=== PATIENT | female | born 1960 | race Caucasian/White ===

== ENCOUNTER 2017-04-02 06:33 | Day surgery (SDC) | payer BC ==
[~2017-04-02 06:33] MED LIST: Lactated Ringers 1,000 ML IV SCH; Lidocaine 1%/Sod Bicarbonate in NS 8.4% 1 ML Syringe IDERM PRN; Sodium Chloride 0.9% 10 ML Syringe FLUSH PRN
[2017-04-02] MEDS ORDERED: Ondansetron 4 MG/2 ML SDV ONE (06:46)
[2017-04-02] MEDS ORDERED: Lidocaine 1% 4 ML ONE (06:46)
[2017-04-02] MEDS ORDERED: Midazolam 1 MG/ML 2 ML SDV ONE (06:47)
[2017-04-02] MEDS ORDERED: Propofol 200 MG/20 ML SDV ONE ×3 (06:47→08:13)
[2017-04-02] MEDS ORDERED: fentaNYL 250 MCG/5 ML SDV ONE (06:47)
--- NOTE | 2017-04-02 07:01 | PCM.PREANE ---
Preanesthetic Assessment - Anesthesia/Transfusion/Family Hx Anesthesia History: Prior Anesthesia Reaction Type of Anesthesia Reaction: Other (see below) (sleepy and nausea) Family History of Anesthesia Reaction: No Transfusion History: No Prior Transfusion(s) - Review of Systems General: No Symptoms Pulmonary: No Symptoms Cardiovascular: No Symptoms Gastrointestinal: No Symptoms Neurological: No Symptoms Other: Reports: None - Physical Assessment NPO Status Date: 04/01/17 NPO Status Time: 21:45 Pulse: 67 O2 Sat by Pulse Oximetry: 94 Respiratory Rate: 20 Blood Pressure: 129/74 Temperature: 97.9 F Height: 5 ft 9 in Weight: 86.183 kg ASA Class: 1 Mental Status: Alert & Oriented x3 Airway Class: Mallampati = 1 Dentition: Reports: Normal Dentition Thyro-Mental Finger Breadths: 3 Mouth Opening Finger Breadths: 3 ROM/Head Extension: Full Lungs: Clear to Auscultation, Normal Respiratory Effort Cardiovascular: Regular Rate, Regular Rhythm - Allergies Allergies/Adverse Reactions: Allergies Allergy/AdvReac Type Severity Reaction Status Date / Time codeine Allergy Cannot Verified 04/01/17 15:12 Remember Penicillins Allergy Cannot Verified 04/01/17 15:12 Remember - Blood Blood Available: No - Acknowledgements Anesthesia Type Planned: General Anesthesia Pt an Appropriate Candidate for the Planned Anesthesia: Yes Alternatives and Risks of Anesthesia Discussed w Pt/Guardian: Yes Pt/Guardian Understands and Agrees with Anesthesia Plan: Yes PreAnesthesia Questionnaire HEENT History: Reports: None Cardiovascular History: Reports: None Respiratory History: Reports: None Gastrointestinal History: Reports: None Genitourinary History: Reports: None SERVICE SUPPORT REPRESENTATIVE History: Reports: Other (See Below) Other OB/BYN History: laparotomy Musculoskeletal History: Reports: None Neurological History: Reports: None Psychiatric History: Reports: None Endocrine/Metabolic History: Reports: None Hematologic History: Reports: None Immunologic History: Reports: None Oncologic (Cancer) History: Reports: None Dermatologic History: Reports: None - Past Surgical History Head Surgeries/Procedures: Reports: None HEENT Surgical History: Reports: None Cardiovascular Surgical History: Reports: None Respiratory Surgical History: Reports: None GI Surgical History: Reports: Appendectomy, Colonoscopy Female Surgical History: Reports: Breast Reduction, D&C, Hysterectomy Endocrine Surgical History: Reports: None Neurological Surgical History: Reports: None Musculoskeletal Surgical History: Reports: None Oncologic Surgical History: Reports: None Dermatological Surgical History: Reports: None - History Comment History Comment: on no meds at home - SUBSTANCE USE Smoking Status *Q: Former Smoker (quit 1988) Tobacco Use Within Last Twelve Months: No Second Hand Smoke Exposure: No Days Per Week of Alcohol Use: 1 Number of Drinks Per Day: 2 Total Drinks Per Week: 2 Recreational Drug Use History: No - HOME MEDS Home Medications: Home Meds Cholecalciferol (Vitamin D3) [Vitamin D3] 1,000 units PO DAILY 04/01/17 [History ] Fish Oil/[place]-3 Fatty Acids [Fish Oil 1,000 MG] 1 gm PO DAILY 04/01/17 [History ] Multivitamin [Daily Grant] 1 tab PO DAILY 04/01/17 [History] Aspirin 325 mg PO BID #84 tab 04/02/17 [Rx] traMADol [Ultram] 50 - 100 mg PO Q4H PRN #30 tab 04/02/17 [Rx] - CURRENT (IN HOUSE) MEDS Current Meds: Current Medications Lactated Ringer's (Ringers, Lactated) 1,000 mls @ 125 mls/hr IV ASDIRECTED CHRISTIANO Stop: 04/02/17 23:00 Lidocaine/Sodium Bicarbonate (Buffered Lidocaine 1% In Ns 8.4%) 0.25 ml IDERM ONETIME PRN PRN Reason: Prior to IV Start Stop: 04/02/17 18:00 Sodium Chloride (Saline Flush) 10 ml FLUSH ASDIRECTED PRN PRN Reason: Keep Vein Open Stop: 04/02/17 18:00 Discontinued Medications Fentanyl (Sublimaze) Confirm Administered Dose 250 mcg .ROUTE .STK-MED ONE Stop: 04/02/17 06:48 Lidocaine HCl (Xylocaine-Mpf 1%) Confirm Administered Dose 4 mls @ as directed .ROUTE .STK-MED ONE Stop: 04/02/17 06:47 Midazolam HCl (Versed 1 Mg/Ml) Confirm Administered Dose 2 mg .ROUTE .STK-MED ONE Stop: 04/02/17 06:48 Ondansetron HCl (Zofran) Confirm Administered Dose 4 mg .ROUTE .STK-MED ONE Stop: 04/02/17 06:47 Propofol (Diprivan 20 Ml) Confirm Administered Dose 200 mg .ROUTE .STK-MED ONE Stop: 04/02/17 06:48
[2017-04-02] MEDS ORDERED: Metoclopramide 10 MG/2 ML SDV ONE (07:11)
[2017-04-02] MEDS ORDERED: Bupivacaine 0.25% 10 ML SDV ONE (07:15)
[2017-04-02] MEDS ORDERED: EPINEPHrine 1 MG/ML 30 ML MDV IV ONE (07:30)
[2017-04-02] MEDS ORDERED: Dexamethasone 4 MG/ML 5 ML MDV ONE ×2 (07:31→09:01)
[2017-04-02] MEDS ORDERED: fentaNYL 100 MCG/2 ML SDV IVPUSH PRN (07:38)
[2017-04-02] MEDS ORDERED: Ondansetron 4 MG/2 ML SDV IVPUSH PRN (07:38)
[2017-04-02] MEDS ORDERED: Meperidine PF 50 MG/ML Syringe IVPUSH PRN (07:38)
[2017-04-02] MEDS ORDERED: ePHEDrine 50 MG/ML SDV ONE (07:47)
[2017-04-02] MEDS ORDERED: ceFAZolin 1 GM Vial ONE (07:57)
[2017-04-02] MEDS ORDERED: Ketorolac 30 MG/ML SDV ONE (08:02)
--- NOTE | 2017-04-02 08:41 | PCM.POSTAN ---
POST ANESTHESIA ASSESSMENT - MENTAL STATUS Mental Status: Alert, Oriented - VITAL SIGNS Pulse Rate: 88 SaO2: 100 Resp Rate: 12 Blood Pressure: 133/81 Temperature: 97.2 F - RESPIRATORY Respiratory Status: Respiratory Rate WNL, Airway Patent, O2 Saturation Stable, Supplemental Oxygen - CARDIOVASCULAR CV Status: Pulse Rate WNL, Blood Pressure Stable - GASTROINTESTINAL GI Status: No Symptoms - PAIN Pain Score: 0 - POST OP HYDRATION Hydration Status: Adequate & Stable
[2017-04-02] MEDS ORDERED: traMADol 50 MG Tab PO PRN (09:16)
[2017-04-02] MEDS ORDERED: Lactated Ringers 1,000 ML ONE (09:22)
--- NOTE | 2017-04-02 10:19 | PCM48HPAN ---
Post Anesthesia Note - EVALUATION WITHIN 48HRS OF ANESTHETIC Vital Signs in Normal Range: Yes Patient Participated in Evaluation: Yes Respiratory Function Stable: Yes Airway Patent: Yes Cardiovascular Function Stable: Yes Hydration Status Stable: Yes Pain Control Satisfactory: Yes Nausea and Vomiting Control Satisfactory: Yes Mental Status Recovered: Yes Pulse Rate: 88 Resp Rate: 16 Temperature: 97.2 F Blood Pressure: 133/81
--- NOTE | 2017-04-05 21:40 | PCM.OPNOTE ---
- General Post-Op/Procedure Note Date of Surgery/Procedure: 04/02/17 Operative Procedure(s): left knee video arthroscopy with medial femoral condyle chondroplasty Pre Op Diagnosis: left knee osteoarthritis with probable medial meniscus tear Post-Op Diagnosis: left knee osteoarthosis Anesthesia Technique: General LMA, Local Primary Surgeon: Davis Cueva Anesthesia Provider: Ailin Olivarez Follow Up Specialist: Andie Hollins EBJacinto in mLs: 5 Complications: None Condition: Good
--- NOTE | 2017-04-05 22:34 | OR ---
DATE OF OPERATION: 04/02/2017 SURGEON: Davis Cueva MD OPERATION PERFORMED: Left knee video arthroscopy with medial femoral condyle chondroplasty. PREOPERATIVE DIAGNOSIS: Left knee osteoarthrosis with probable medial meniscus tear. 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 ANESTHESIA: General LMA with local. ANESTHESIA PROVIDER: Ailin Olivarez CRNA. PEDIATRIC ONCOLOGIST: Andie Hollins PA-C. ESTIMATED BLOOD LOSS: 5 mL. COMPLICATIONS: None. CONDITION: Stable. DESCRIPTION OF PROCEDURE: The patient was identified in the preop holding area. Proper site was marked and identified by the surgeon. The patient was taken back to the operating theater, where after adequate anesthesia, the patient's right lower extremity was placed in a well leg chaney. Left lower extremity had a nonsterile tourniquet and then placed in a C-clamp chaney. Foot of bed was then lowered and the left knee was sterilely prepped and draped in the usual sterile fashion. OR time-out was performed. The patient received 2 g IV Ancef. The left lower extremity was then exsanguinated. Tourniquet was insufflated to 250 mmHg. Standard anterior lateral portal incision was made. Then, scope trocar was introduced into the knee. At this time, patella showed grade 1 chondromalacia as well as the trochlea. There were no loose or foreign bodies in the mediolateral gutter. Attention was turned to the medial compartment. At this time, with use of a spinal needle, an anterior medial portal was created. A probe was then introduced. The patient was noted to have significant erythema noted near the junction of the capsular attachment of the medial meniscus, but there was no tear noted. The patient did have significant grade 3/4 chondromalacia with loose flaps noted on the medial femoral condyle and there was grade 3 chondromalacia of the medial tibial plateau. At this time, a chondroplasty was performed of the medial femoral condyle of any loose pieces of cartilage at this time back to a stable rim. At this time, attention was turned to the notch. There was an intact ACL on the notch lateral condyle. The lateral compartment showed no signs of chondromalacia or lateral meniscus tear. At this time, excess saline was drained from the knee. 3-0 nylon simple suture was used for closure of the skin. The patient was sent to the PACU in stable condition. MMODAL /[id number]
== END 2017-04-02 11:35 | disposition home or self-care (01) ==
LOC: JD.SDS 06:33
PROVIDERS: ATTEND Orthopaedic Surgery
DX: M94.262 Chondromalacia, left knee (principal); Z90.49 Acquired absence of other specified parts of digestive tract; Z90.710 Acquired absence of both cervix and uterus; Z88.0 Allergy status to penicillin; Z88.8 Allergy status to other drugs, medicaments and biological substances; Z87.891 Personal history of nicotine dependence; Z79.899 Other long term (current) drug therapy
CPT/HCPCS: 29877; J0171; J0690; J1100; J1885; J2250; J2405; J2765; J3010; J7120; J2704

== ENCOUNTER 2017-06-06 07:52 | Observation (INO) | payer BC ==
--- NOTE | 2017-06-06 08:26 | EDM.PDOC ---
ED HPI GENERAL MEDICAL PROBLEM - General Chief Complaint: Fever Stated Complaint: BODY ACHES/FEVER/VOMITING Time Seen by Provider: 06/06/17 08:18 Source of Information: Reports: Patient History Limitations: Reports: No Limitations - History of Present Illness INITIAL COMMENTS - FREE TEXT/NARRATIVE: 57-year-old female presents to the ED due to acute onset of illness with high fever chills with rigors. Diffuse generalized myalgia headache nausea vomiting and diarrhea and nonproductive cough. All the signs and symptoms of influenza type B. Symptoms developed over the last 12 hours or so. Came on very acutely. She is normally very healthy. 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 Influenza B is still been prevalent in her community. Had not taken anything for fever relief. She reports sweats diaphoresis and then severe chills off and on throughout the night. Vomited up her supper last night and has had 2 loose stools overnight. No blood. States she is passing her urine but in small quantities. No burning or urgency. Patient does mention that she's been cleaning out the attic in her parents house with dust up there for 30-35 years. Initially was not wearing a mask but was wearing while mask the last few days. She did not witness any mouse poop per se but mentions possibility of to virus exposure. This be unlikely in this environment. Onset: Sudden Onset Date: 06/05/17 Duration: Hour(s): (Symptoms came on abruptly over the last 12-16 hours.) Location: Reports: Chest (Nonproductive cough), Generalized (Generalized myalgia with a headache), Other (Nausea vomiting with mild diarrhea.) Quality: Reports: Ache (Generalized aching.) Severity: Moderate (Rates current pain 7-8 out of 10.) Improves with: Reports: None Worsens with: Reports: Movement Context: Denies: Activity, Exercise, Lifting, Sick Contact, Trauma Associated Symptoms: Reports: Cough, Diaphoresis, Fever/Chills, Headaches, Loss of Appetite, Malaise, Nausea/Vomiting (Once last evening after eating out for supper last night.), Weakness. Denies: No Other Symptoms, Confusion, Chest Pain , cough w sputum, Rash, Seizure, Shortness of Breath, Syncope Treatments BUTTON SEWER HAND: Reports: Other (see below) (None.) Generalized Pain Score (Numeric/FACES): 5 - Related Data Allergies Allergy/AdvReac Type Severity Reaction Status Date / Time codeine Allergy Cannot Verified 06/06/17 08:09 Remember Penicillins Allergy Cannot Verified 06/06/17 08:09 Remember Home Meds: Home Meds Cholecalciferol (Vitamin D3) [Vitamin D3] 1,000 units PO DAILY 04/01/17 [History ] Fish Oil/[place]-3 Fatty Acids [Fish Oil 1,000 MG] 1 gm PO DAILY 04/01/17 [History ] Multivitamin [Daily Grant] 1 tab PO DAILY 04/01/17 [History] Past Medical History HEENT History: Reports: None Cardiovascular History: Reports: None Respiratory History: Reports: None Gastrointestinal History: Reports: None Genitourinary History: Reports: None PRIVATE INVESTIGATOR SURVEILLANCE History: Reports: Other (See Below) Other OB/BYN History: laparotomy Musculoskeletal History: Reports: None Neurological History: Reports: None Psychiatric History: Reports: None Endocrine/Metabolic History: Reports: None Hematologic History: Reports: None Immunologic History: Reports: None Oncologic (Cancer) History: Reports: None Dermatologic History: Reports: None - Past Surgical History Head Surgeries/Procedures: Reports: None HEENT Surgical History: Reports: None Cardiovascular Surgical History: Reports: None Respiratory Surgical History: Reports: None GI Surgical History: Reports: Appendectomy, Colonoscopy Female Surgical History: Reports: Breast Reduction, D&C, Hysterectomy Endocrine Surgical History: Reports: None Neurological Surgical History: Reports: None Musculoskeletal Surgical History: Reports: None Oncologic Surgical History: Reports: None Dermatological Surgical History: Reports: None - History Comment History Comment: on no meds at home Social & Family History - Tobacco Use Smoking Status *Q: Former Smoker Used Tobacco, but Quit: Yes Month/Year Tobacco Last Used: 1988 Second Hand Smoke Exposure: No - Caffeine Use Caffeine Use: Reports: Coffee - Alcohol Use Days Per Week of Alcohol Use: 1 Number of Drinks Per Day: 2 Total Drinks Per Week: 2 - Recreational Drug Use Recreational Drug Use: No Drug Use in Last 12 Months: No - Living Situation & Occupation Living situation: Reports: Occupation: Employed ED ROS GENERAL - Review of Systems Review Of Systems: See Below Constitutional: Reports: Fever, Chills, Malaise, Weakness, Fatigue, Diaphoresis , Decreased Appetite HEENT: Reports: No Symptoms Respiratory: Reports: Cough (Nonproductive) Cardiovascular: Denies: Chest Pain, Blood Pressure Problem, Claudication, Dyspnea on Exertion, Edema, Lightheadedness, Orthopnea Endocrine: Reports: No Symptoms GI/Abdominal: Reports: Diarrhea, Nausea (2 loose stools overnight without any blood.), Vomiting : Reports: Other (Frequency with small quantities of urine only past. No dysuria or urgency.) Musculoskeletal: Reports: Muscle Pain (Severe generalized myalgia particularly shoulders neck and lower back and thighs.) Skin: Reports: No Symptoms Neurological: Reports: Headache (Generalized headache felt mostly occipitally.) Psychiatric: Reports: No Symptoms Hematologic/Lymphatic: Reports: No Symptoms Immunologic: Reports: No Symptoms ED EXAM, GENERAL - Physical Exam Exam: See Below Exam Limited By: No Limitations General Appearance: Alert, WD/WN, No Apparent Distress, Other (She is quite warm to palpation.) Eye Exam: Bilateral Eye: Normal Inspection Ears: Normal TMs Throat/Mouth: Normal Inspection, Normal Lips, Normal Oropharynx Head: Atraumatic, Normocephalic Neck: Normal Inspection, Supple, Non-Tender, Full Range of Motion. No: Lymphadenopathy (L), Lymphadenopathy (R) Respiratory/Chest: No Respiratory Distress, Lungs Clear, Normal Breath Sounds, Chest Non-Tender. No: Rales, Rhonchi, Wheezing Cardiovascular: Normal Peripheral Pulses, Regular Rate, Rhythm, No Edema, No Gallop, No Murmur, No Rub, Tachycardia (10 6/m.) Peripheral Pulses: 3+: Posterior Tibial (L), Posterior Tibial (R), Dorsalis Pedis (L), Dorsalis Pedis (R) GI/Abdominal: Soft, Non-Tender, No Organomegaly, No Abnormal Bruit, No Mass, Distended (Minimally distended and diffusely tympanitic to percussion.), Abnormal Bowel Sounds (Mildly hyperactive bowel sounds.), Other (Has had previous appendectomy.) Back Exam: Normal Inspection, Full Range of Motion, Other. No: CVA Tenderness ( L), CVA Tenderness (R) Extremities: Normal Inspection (Muscles are tender to palpation along the lumbar spine.), Normal Range of Motion, Non-Tender, No Pedal Edema Neurological: Alert, Oriented, CN II-XII Intact, Normal Cognition Psychiatric: Normal Affect, Normal Mood Skin Exam: Warm, Dry, Intact, Normal Color, No Rash Course - Vital Signs Last Recorded V/S: Last Vital Signs Temp 37.2 C 06/06/17 08:04 Pulse 100 06/06/17 08:04 Resp 16 06/06/17 08:04 BP 151/85 H 06/06/17 08:04 Pulse Ox 94 L 06/06/17 08:04 - Orders/Labs/Meds Orders: Active Orders 24 hr Category Date Time Status Admission Status [Patient Status] [ADT] Routine ADT 06/06/17 12:34 Ordered Chest 1V Frontal [CR] Stat Exams 06/06/17 08:28 Taken CULTURE BLOOD [BC] Stat Lab 06/06/17 09:13 Received CULTURE BLOOD [BC] Stat Lab 06/06/17 09:20 Received INFLUENZA A+B AG SCREEN [RM] Stat Lab 06/06/17 08:40 Ordered URINALYSIS W/MICROSCOPIC [UA W/MICROSCOPIC] [URIN] Stat Lab 06/06/17 11:19 Ordered Dextrose 5%-0.9% NaCl [Dextrose 5%-Normal Saline] 1,000 Med 06/06/17 08:30 Active ml IV ASDIRECTED Ketorolac [Toradol] Med 06/06/17 08:30 Active 30 mg IVPUSH ONETIME Blood Culture x2 Reflex Set [OM.PC] Stat Oth 06/06/17 08:28 Ordered Medication Orders Dextrose/Sodium Chloride (Dextrose 5%-Normal Saline) 1,000 mls @ 500 mls/hr IV ASDIRECTED CHRISTIANO Last Admin: 06/06/17 08:40 Dose: 500 mls/hr Ketorolac Tromethamine (Toradol) 30 mg IVPUSH ONETIME CHRISTIANO Last Admin: 06/06/17 08:44 Dose: 30 mg Labs: Laboratory Tests 06/06/17 06/06/17 06/06/17 Range/Units 08:20 08:20 11:19 WBC 7.08 (3.98-10.04) K/mm3 RBC 4.52 (3.98-5.22) M/mm3 Hgb 14.8 (11.2-15.7) gm/L Hct 44.2 (34.1-44.9) % MCV 97.8 H (79.4-94.8) fl MCH 32.7 H (25.6-32.2) pg MCHC 33.5 (32.2-35.5) g/dl RDW Std Deviation 46.1 (36.4-46.3) fL Plt Count 232 (182-369) K/mm3 MPV 9.4 (9.4-12.3) fl Neutrophils % (Manual) 92 H (40-60) % Band Neutrophils % 0 (0-10) % Lymphocytes % (Manual) 6 L (20-40) % Atypical Lymphs % 0 % Monocytes % (Manual) 2 (2-10) % Eosinophils % (Manual) 0 L (0.7-5.8) % Basophils % (Manual) 0 L (0.1-1.2) Platelet Estimate Adequate RBC Morph Comment Normal Sodium 140 (136-145) mEq/L Potassium 3.4 L (3.5-5.1) mEq/L Chloride 104 (98-107) mEq/L Carbon Dioxide 25 (21-32) mEq/L Anion Gap 14.4 (5-15) BUN 14 (7-18) mg/dL Creatinine 0.8 (0.55-1.02) mg/dL Est Cr Clr Drug Dosing 79.21 mL/min Estimated GFR (MDRD) > 60 (>60) mL/min BUN/Creatinine Ratio 17.5 (14-18) Glucose 129 H (74-106) mg/dL Calcium 9.1 (8.5-10.1) mg/dL Total Bilirubin 1.3 H (0.2-1.0) mg/dL AST 20 (15-37) U/L ALT 39 (14-59) U/L Alkaline Phosphatase 74 (46-116) U/L C-Reactive Protein 2.1 H* (<1.0) mg/dL Total Protein 7.4 (6.4-8.2) g/dl Albumin 4.1 (3.4-5.0) g/dl Globulin 3.3 gm/dL Albumin/Globulin Ratio 1.2 (1-2) Urine Color Light yellow (Yellow) Urine Appearance Clear (Clear) Urine pH 6.5 (5.0-8.0) Ur Specific [place] 1.015 (1.005-1.030) Urine Protein Negative (Negative) Urine Glucose (UA) Negative (Negative) Urine Ketones Negative (Negative) Urine Occult Blood Negative (Negative) Urine Nitrite Negative (Negative) Urine Bilirubin Negative (Negative) Urine Urobilinogen 1.0 (0.2-1.0) Ur Leukocyte Esterase Negative (Negative) Urine RBC 0-5 (0-5) /hpf Urine WBC 0-5 (0-5) /hpf Ur Epithelial Cells 0-5 (0-5) /hpf Calcium Oxalate Crystal Few H (NONE) Urine Bacteria Few (FEW) /hpf Urine Mucus Not seen (FEW) /hpf Meds: Medications Generic Name Dose Route Start Last Admin Trade Name Freq PRN Reason Stop Dose Admin Dextrose/Sodium Chloride 1,000 mls @ 500 mls/hr 06/06/17 08:30 06/06/17 08:40 Dextrose 5%-Normal Saline IV 500 mls/hr ASDIRECTED CHRISTIANO Administration Ketorolac Tromethamine 30 mg 06/06/17 08:30 06/06/17 08:44 Toradol IVPUSH 30 mg ONETIME CHRISTIANO Administration Discontinued Medications Generic Name Dose Route Start Last Admin Trade Name Freq PRN Reason Stop Dose Admin Acetaminophen 975 mg 06/06/17 08:29 06/06/17 09:07 Tylenol PO 06/06/17 08:30 975 mg NOW ONE Administration Levofloxacin/Dextrose 750 mg/ 150 mls @ 100 mls/hr 06/06/17 09:28 06/06/17 09 :38 Premix IV 06/06/17 10:57 100 mls/hr ONETIME ONE Administration Metoclopramide HCl 7.5 mg 06/06/17 11:39 06/06/17 11:48 Reglan IVPUSH 06/06/17 11:40 7.5 mg ONETIME ONE Administration Ondansetron HCl 4 mg 06/06/17 08:29 06/06/17 08:41 Zofran IVPUSH 06/06/17 08:30 4 mg ONETIME ONE Administration - Radiology Interpretation Free Text/Narrative:: 57-year-old female presents to the ED with acute onset of high fever chills and generalized myalgia with a nonproductive cough. Associated vomiting once last night and 2 small diarrhea stools overnight. These are all the signs and symptoms of influenza type B. We will tested for influenza although this within that first 24 hour darryn and may have a false negative response. View chest x- ray to be obtained with routine labs including blood cultures 2. Urinalysis one becomes available. Given Tylenol 975 mg per ora for fever relief. 40 of Toradol 30 mg given IV for body ache and headache relief and Zofran 4 mg IV for nausea relief. He will be D5 normal saline at 500 mils per hour. - Re-Assessments/Exams Free Text/Narrative Re-Assessment/Exam: 06/06/17 09:25 Chest x-ray reveals right lower lobar pneumonia.Labs revealed a white count of 7.08 with 92% neutrophils and no bands. Hemoglobin is 14.8 with hematocrit of 44.2. MCV is slightly elevated at 97.8. Platelet count is 232, 000. Sodium is 140 with potassium slightly low at 3.4. Chloride is 104 the bicarbonate of 25. And a gap is normal at 14.4. BUN is 14. Creatinine is 0.8. Glucose is 129. His calcium is 9.1. Bilirubin is mildly elevated at 1.3. AST is 20. ALT is 39. Alkaline phosphatase but days is normal at 74. CRP is mildly elevated at 2.1. Influenza screen is negative at this time. Patient will be started on Levaquin 750 mg IV. 06/06/17 11:23: Patient is completed IV Levaquin. I have given her options earlier about going home and trying things at home with oral Levaquin or staying in the hospital. Initially she thought she might try things at home but family has persuaded her to stay in the hospital. Remains febrile. She remains nauseated. She has trouble keeping down fluids at this point time she has taken only a little bit by mouth and is feeling nauseated. It probably is in her best interest to stay in the hospital. I will therefore speak with cash applications representative hospitalist Dr. Glynn in this regard. Tentatively she could be admitted to med surgery as an observation status patient 06/06/17 11:[address] Glynn. He agrees with admission to the hospital per observation status. Patient is having fairly significant nausea at this time. Will give her Reglan 7.5 mg IV. Departure - Departure Time of Disposition: 11:38 Disposition: Admitted As Inpatient 67 Condition: Fair Clinical Impression: Nausea and vomiting in adult Pneumonia Qualifiers: Pneumonia type: due to unspecified organism Laterality: right Lung location: lower lobe of lung Qualified Code(s): J18.1 - Lobar pneumonia, unspecified organism - Discharge Information Referrals: PCP,None [Primary Care Provider] - Forms: ED Department Discharge - My Orders Last 24 Hours: My Active Orders 06/06/17 08:28 Chest 1V Frontal [CR] Stat Blood Culture x2 Reflex Set [OM.PC] Stat 06/06/17 08:30 Dextrose 5%-0.9% NaCl [Dextrose 5%-Normal Saline] 1,000 ml IV ASDIRECTED Ketorolac [Toradol] 30 mg IVPUSH ONETIME 06/06/17 08:40 INFLUENZA A+B AG SCREEN [RM] Stat 06/06/17 09:13 CULTURE BLOOD [BC] Stat 06/06/17 09:20 CULTURE BLOOD [BC] Stat 06/06/17 11:19 URINALYSIS W/MICROSCOPIC [UA W/MICROSCOPIC] [URIN] Stat 06/06/17 12:34 Admission Status [Patient Status] [ADT] Routine - Assessment/Plan Last 24 Hours: My Active Orders 06/06/17 08:28 Chest 1V Frontal [CR] Stat Blood Culture x2 Reflex Set [OM.PC] Stat 06/06/17 08:30 Dextrose 5%-0.9% NaCl [Dextrose 5%-Normal Saline] 1,000 ml IV ASDIRECTED Ketorolac [Toradol] 30 mg IVPUSH ONETIME 06/06/17 08:40 INFLUENZA A+B AG SCREEN [RM] Stat 06/06/17 09:13 CULTURE BLOOD [BC] Stat 06/06/17 09:20 CULTURE BLOOD [BC] Stat 06/06/17 11:19 URINALYSIS W/MICROSCOPIC [UA W/MICROSCOPIC] [URIN] Stat 06/06/17 12:34 Admission Status [Patient Status] [ADT] Routine
[2017-06-06] MEDS ORDERED: Ondansetron 4 MG/2 ML SDV IVPUSH ONE (08:29)
[2017-06-06] MEDS ORDERED: Acetaminophen 325 MG Tab PO ONE (08:29)
[2017-06-06] MEDS ORDERED: Ketorolac 30 MG/ML SDV IVPUSH SCH (08:30)
[2017-06-06] MEDS ORDERED: Dextrose 5%-0.9% NaCl 1,000 ML IV SCH (08:30)
[2017-06-06] MEDS ORDERED: Levofloxacin/Dextrose 5%-Water 750 MG in Premix Bag 1 BAG IV ONE (09:28)
[2017-06-06] MEDS ORDERED: Metoclopramide 10 MG/2 ML SDV IVPUSH ONE (11:39)
[2017-06-06] MEDS ORDERED: hydrALAZINE 20 MG/ML SDV IVPUSH PRN (12:35)
[2017-06-06] MEDS ORDERED: Metoprolol Tartrate 5 MG/5 ML SDV IVPUSH PRN (12:35)
[2017-06-06] MEDS ORDERED: LORazepam 2 MG/ML SDV IVPUSH PRN (12:35)
[2017-06-06] MEDS ORDERED: Docusate Sodium 100 MG Cap PO PRN (12:36)
[2017-06-06] MEDS ORDERED: Promethazine 12.5 MG in Sodium Chloride 0.9% 50 ML IV PRN (12:36)
[2017-06-06] MEDS ORDERED: LORazepam 2 MG/ML SDV IV PRN (12:36)
[2017-06-06] MEDS ORDERED: Polyethylene Glycol 3350 Powder 17 GM Packet PO PRN (12:36)
[2017-06-06] MEDS ORDERED: Acetaminophen/HYDROcodone 325-5 MG Tab PO PRN (12:36)
[2017-06-06] MEDS ORDERED: Albuterol/Ipratropium 3.0-0.5 MG/3 ML Neb Soln NEB PRN (12:36)
[2017-06-06] MEDS ORDERED: Ondansetron 4 MG/2 ML SDV IV PRN (12:36)
[2017-06-06] MEDS ORDERED: HYDROmorphone 0.5 MG/0.5 ML SYRINGE IVPUSH PRN (12:36)
[2017-06-06] MEDS ORDERED: Bisacodyl 5 MG Tab PO PRN (12:36)
[2017-06-06] MEDS ORDERED: guaiFENesin/Dextromethorphan 100-10 MG/5 ML Soln 5 ML Cup PO PRN (12:41)
[2017-06-06] MEDS ORDERED: Scopolamine 1.5 MG Transdermal Patch TRDERM ONE (12:52)
[2017-06-06] MEDS ORDERED: Famotidine 20 MG/2 ML SDV IVPUSH ONE (12:53)
--- NOTE | 2017-06-06 12:53 | PCM.HP ---
H&P History of Present Illness - General Date of Service: 06/06/17 Admit Problem/Dx: Admission Diagnosis/Problem Admission Diagnosis/Problem Pneumonia Source of Information: Patient, Provider, RN Notes Reviewed History Limitations: Reports: No Limitations - History of Present Illness Initial Comments - Free Text/Narative: This is a fairly healthy 57 yo white female with no significant past medical hx/ o comes in for evaluation of acute illness associated with fever, chills, generalized aches and pains, nausea, vomiting, and diarrhea as well as nonproductive cough that developed over the past 12 hours. She denies any recent sick contact, no recent travel outside the country, and no unusual diet or drinks. Her symptoms started after she had supper last night. She reports no previous history of it in the past. Her initial workup in emergency department shows a CBC remarkable for MCV of 97.8, MCH of 32.7, neutrophils of 92%, and lymphocytes of 6%. Her chemistry is significant for potassium of 2.4, glucose of 129, total bilirubin of 1.3, and CRP of 2.1. Her UA is negative for UTI. She is negative for influenza screening. Her chest x-ray shows right perihilar increased markings. The patient is being admitted for medical management of acute pneumonitis and gastroenteritis. She is full code. Generalized Pain Score (Numeric/FACES): 5 - Related Data Allergies/Adverse Reactions: Allergies Allergy/AdvReac Type Severity Reaction Status Date / Time codeine Allergy Cannot Verified 06/06/17 12:48 Remember Penicillins Allergy Cannot Verified 06/06/17 12:48 Remember Home Medications: Home Meds Cholecalciferol (Vitamin D3) [Vitamin D3] 1,000 units PO DAILY 04/01/17 [History ] Fish Oil/Orcas-3 Fatty Acids [Fish Oil 1,000 MG] 1 gm PO DAILY 04/01/17 [History ] Multivitamin [Daily Grant] 1 tab PO DAILY 04/01/17 [History] Past Medical History HEENT History: Reports: None Cardiovascular History: Reports: None Respiratory History: Reports: None Gastrointestinal History: Reports: None Genitourinary History: Reports: None COAL PICKER History: Reports: Other (See Below) Other OB/BYN History: laparotomy Musculoskeletal History: Reports: None Neurological History: Reports: None Psychiatric History: Reports: None Endocrine/Metabolic History: Reports: None Hematologic History: Reports: None Immunologic History: Reports: None Oncologic (Cancer) History: Reports: None Dermatologic History: Reports: None - Past Surgical History Head Surgeries/Procedures: Reports: None HEENT Surgical History: Reports: None Cardiovascular Surgical History: Reports: None Respiratory Surgical History: Reports: None GI Surgical History: Reports: Appendectomy, Colonoscopy Female Surgical History: Reports: Breast Reduction, D&C, Hysterectomy Endocrine Surgical History: Reports: None Neurological Surgical History: Reports: None Musculoskeletal Surgical History: Reports: None Oncologic Surgical History: Reports: None Dermatological Surgical History: Reports: None - History Comment History Comment: on no meds at home Social & Family History - Tobacco Use Smoking Status *Q: Former Smoker Used Tobacco, but Quit: Yes Month/Year Tobacco Last Used: 1988 Second Hand Smoke Exposure: No - Caffeine Use Caffeine Use: Reports: Coffee - Alcohol Use Days Per Week of Alcohol Use: 1 Number of Drinks Per Day: 2 Total Drinks Per Week: 2 - Recreational Drug Use Recreational Drug Use: No Drug Use in Last 12 Months: No - Living Situation & Occupation Living situation: Reports: Occupation: Employed H&P Review of Systems - Review of Systems: Review Of Systems: See Below General: Reports: Fever, Chills, Malaise, Weakness, Fatigue, Diaphoresis, Decreased Appetite HEENT: Reports: No Symptoms Pulmonary: Reports: Cough. Denies: Shortness of Breath, Sputum Cardiovascular: Denies: Chest Pain, Palpitations, Dyspnea on Exertion Gastrointestinal: Reports: Diarrhea, Decreased Appetite, Flatus, Nausea, Vomiting. Denies: Abdominal Pain, Black Stool, Bloody Stool, Difficulty Swallowing, Hematochezia Genitourinary: Reports: No Symptoms Musculoskeletal: Reports: Muscle Pain. Denies: Joint Pain Skin: Denies: Cyanosis, Jaundice, Mottled, Pallor, Diaphoresis Psychiatric: Denies: Depression, Mood Lability, Anxiety, Hallucinations Neurological: Reports: Headache. Denies: Confusion, Difficulty Walking, Weakness, Gait Disturbance Hematologic/Lymphatic: Reports: No Symptoms Immunologic: Reports: No Symptoms Exam - Exam Exam: See Below - Vital Signs Vital Signs: Last Vital Signs Temp 37.2 C 06/06/17 08:04 Pulse 100 06/06/17 08:04 Resp 16 06/06/17 08:04 BP 151/85 H 06/06/17 08:04 Pulse Ox 94 L 06/06/17 08:04 Weight: 81.647 kg - Exam General: Alert, Oriented, Cooperative. No: Mild Distress HEENT: Conjunctiva Clear, EACs Clear, EOMI, Hearing Intact, Mucosa Moist & [place] , Nares Patent, Normal Nasal Septum, Posterior Pharynx Clear, Pupils Equal, Pupils Reactive Neck: Supple, Trachea Midline Lungs: Clear to Auscultation, Normal Respiratory Effort Cardiovascular: Regular Rate, Regular Rhythm GI/Abdominal Exam: Normal Bowel Sounds, Soft, Non-Tender, No Organomegaly, No Distention, No Abnormal Bruit, No Mass (Female) Exam: Deferred Rectal (Female) Exam: Deferred Back Exam: Normal Inspection, Full Range of Motion Extremities: Normal Inspection, Normal Range of Motion, Non-Tender, No Pedal Edema, Normal Capillary Refill Peripheral Pulses: 3+: Posterior Tibial (L), Posterior Tibial (R), Dorsalis Pedis (L), Dorsalis Pedis (R) Skin: Warm, Dry, Intact Neuro Extensive - Mental Status: Oriented x3, Normal Cognition, Memory Intact Neuro Extensive - Motor, Sensory, Reflexes: CN II-XII Intact, Normal Gait Psychiatric: Alert, Normal Affect, Normal Mood - Patient Data Lab Results Last 24 hrs: Laboratory Results - last 24 hr 06/06/17 06/06/17 06/06/17 Range/Units 08:20 08:20 11:19 WBC 7.08 (3.98-10.04) K/mm3 RBC 4.52 (3.98-5.22) M/mm3 Hgb 14.8 (11.2-15.7) gm/L Hct 44.2 (34.1-44.9) % MCV 97.8 H (79.4-94.8) fl MCH 32.7 H (25.6-32.2) pg MCHC 33.5 (32.2-35.5) g/dl RDW Std Deviation 46.1 (36.4-46.3) fL Plt Count 232 (182-369) K/mm3 MPV 9.4 (9.4-12.3) fl Neutrophils % (Manual) 92 H (40-60) % Band Neutrophils % 0 (0-10) % Lymphocytes % (Manual) 6 L (20-40) % Atypical Lymphs % 0 % Monocytes % (Manual) 2 (2-10) % Eosinophils % (Manual) 0 L (0.7-5.8) % Basophils % (Manual) 0 L (0.1-1.2) Platelet Estimate Adequate RBC Morph Comment Normal Sodium 140 (136-145) mEq/L Potassium 3.4 L (3.5-5.1) mEq/L Chloride 104 (98-107) mEq/L Carbon Dioxide 25 (21-32) mEq/L Anion Gap 14.4 (5-15) BUN 14 (7-18) mg/dL Creatinine 0.8 (0.55-1.02) mg/dL Est Cr Clr Drug Dosing 79.21 mL/min Estimated GFR (MDRD) > 60 (>60) mL/min BUN/Creatinine Ratio 17.5 (14-18) Glucose 129 H (74-106) mg/dL Calcium 9.1 (8.5-10.1) mg/dL Total Bilirubin 1.3 H (0.2-1.0) mg/dL AST 20 (15-37) U/L ALT 39 (14-59) U/L Alkaline Phosphatase 74 (46-116) U/L C-Reactive Protein 2.1 H* (<1.0) mg/dL Total Protein 7.4 (6.4-8.2) g/dl Albumin 4.1 (3.4-5.0) g/dl Globulin 3.3 gm/dL Albumin/Globulin Ratio 1.2 (1-2) Urine Color Light yellow (Yellow) Urine Appearance Clear (Clear) Urine pH 6.5 (5.0-8.0) Ur Specific [place] 1.015 (1.005-1.030) Urine Protein Negative (Negative) Urine Glucose (UA) Negative (Negative) Urine Ketones Negative (Negative) Urine Occult Blood Negative (Negative) Urine Nitrite Negative (Negative) Urine Bilirubin Negative (Negative) Urine Urobilinogen 1.0 (0.2-1.0) Ur Leukocyte Esterase Negative (Negative) Urine RBC 0-5 (0-5) /hpf Urine WBC 0-5 (0-5) /hpf Ur Epithelial Cells 0-5 (0-5) /hpf Calcium Oxalate Crystal Few H (NONE) Urine Bacteria Few (FEW) /hpf Urine Mucus Not seen (FEW) /hpf Result Diagrams: 06/07/17 06:45 06/07/17 06:45 Kieran Results Last 24 hrs: Microbiology 06/06/17 08:40 Influenza Type A Antigen Screen - Final Nasal Aspirate, Unspecified NEGATIVE INFLUENZA A VIRUS AG Influenza Type B Antigen Screen - Final NEGATIVE INFLUENZA B VIRUS AG Problem List Initiated/Reviewed/Updated: Yes Orders Last 24hrs: Active Orders 24 hr Category Date Time Status Admission Status [Patient Status] [ADT] Routine ADT 06/06/17 12:34 Active Height and Weight [RC] DAILY Care 06/06/17 12:36 Active Incentive Spirometry [RT Incentive Spirometry] [RC] Care 06/06/17 12:41 Active ASDIRECTED Intake and Output [RC] QSHIFT Care 06/06/17 12:36 Active Oxygen Therapy [RC] PRN Care 06/06/17 12:36 Active RT Aerosol Therapy [RC] ASDIRECTED Care 06/06/17 12:37 Active Up ad Vicky [RC] ASDIRECTED Care 06/06/17 12:36 Active VTE/DVT Education [RC] PER UNIT ROUTINE Care 06/06/17 12:36 Active Vital Signs [RC] Q4H Care 06/06/17 12:36 Active Respiratory Care Assess and Treatment [CONS] Routine Cons 06/06/17 12:38 Active Regular Diet [DIET] Diet 06/06/17 Lunch Active Chest 1V Frontal [CR] Stat Exams 06/06/17 08:28 Taken BASIC METABOLIC PANEL,BMP [CHEM] AM Lab 06/07/17 05:11 Ordered BASIC METABOLIC PANEL,BMP [CHEM] AM Lab 06/08/17 05:11 Ordered BASIC METABOLIC PANEL,BMP [CHEM] AM Lab 06/09/17 05:11 Ordered BASIC METABOLIC PANEL,BMP [CHEM] AM Lab 06/10/17 05:11 Ordered C-REACTIVE PROTEIN [CHEM] AM Lab 06/07/17 05:11 Ordered C-REACTIVE PROTEIN [CHEM] AM Lab 06/08/17 05:11 Ordered C-REACTIVE PROTEIN [CHEM] AM Lab 06/09/17 05:11 Ordered C-REACTIVE PROTEIN [CHEM] AM Lab 06/10/17 05:11 Ordered CBC WITH AUTO DIFF [HEME] AM Lab 06/07/17 05:11 Ordered CBC WITH AUTO DIFF [HEME] AM Lab 06/08/17 05:11 Ordered CBC WITH AUTO DIFF [HEME] AM Lab 06/09/17 05:11 Ordered CBC WITH AUTO DIFF [HEME] AM Lab 06/10/17 05:11 Ordered CULTURE BLOOD [BC] Stat Lab 06/06/17 09:13 Received CULTURE BLOOD [BC] Stat Lab 06/06/17 09:20 Received CULTURE SPUTUM + SMEAR [RM] Stat Lab 06/06/17 12:38 Ordered INFLUENZA A+B AG SCREEN [RM] Stat Lab 06/06/17 08:40 Ordered MAGNESIUM [CHEM] AM Lab 06/07/17 05:11 Ordered MAGNESIUM [CHEM] AM Lab 06/08/17 05:11 Ordered MAGNESIUM [CHEM] AM Lab 06/09/17 05:11 Ordered MAGNESIUM [CHEM] AM Lab 06/10/17 05:11 Ordered URINALYSIS W/MICROSCOPIC [UA W/MICROSCOPIC] [URIN] Stat Lab 06/06/17 11:19 Ordered Acetaminophen [Tylenol] Med 06/06/17 12:36 Ordered 650 mg PO Q4H PRN Acetaminophen/HYDROcodone [[place] 325-5 MG] Med 06/06/17 12:36 Ordered 1 tab PO Q4H PRN Albuterol/Ipratropium [DuoNeb 3.0-0.5 MG/3 ML] Med 06/06/17 12:36 Ordered 3 ml NEB Q4H PRN Bisacodyl [Dulcolax] Med 06/06/17 12:36 Ordered 5 mg PO DAILY PRN Cholecalciferol (Vitamin D3) [Vitamin D3] Med 06/07/17 09:00 Ordered 1,000 units PO DAILY Dextromethorphan/guaiFENesin [Robitussin DM] Med 06/06/17 12:41 Ordered 10 ml PO Q4H PRN Dextrose 5%-0.9% NaCl [Dextrose 5%-Normal Saline] 1,000 Med 06/06/17 08:30 Active ml IV ASDIRECTED Docusate Sodium [Colace] Med 06/06/17 12:36 Ordered 100 mg PO BID PRN Docusate Sodium/Sennosides [Senna Plus] Med 06/06/17 12:36 Ordered 1 tab PO BID PRN Fish Oil/Orcas-3 Fatty Acids [Fish Oil 1,000 MG] Med 06/07/17 09:00 Ordered 1 gm PO DAILY HYDROmorphone [Dilaudid] Med 06/06/17 12:36 Ordered 0.25 mg IVPUSH Q2H PRN Ketorolac [Toradol] Med 06/06/17 12:36 Ordered 30 mg IV Q6H PRN Ketorolac [Toradol] Med 06/06/17 08:30 Active 30 mg IVPUSH ONETIME LORazepam [Ativan] Med 06/06/17 12:36 Ordered 1 mg IV Q6H PRN LORazepam [Ativan] Med 06/06/17 12:35 Ordered 2 mg IVPUSH Q4H PRN Levofloxacin/Dextrose 5%-Water [Levaquin in D5W 750 MG/ Med 06/07/17 09:00 Ordered 150 ML] 750 mg Premix Bag 1 bag IV Q24H Magnesium Rep Pharmacy to Dose [Pharmacy to Dose - Med 06/06/17 12:45 Ordered Magnesium Replacement] 1 dose .XX ASDIRECTED Metoprolol Tartrate [Lopressor] Med 06/06/17 12:35 Ordered 5 mg IVPUSH Q4H PRN Multivitamin Med 06/07/17 09:00 Ordered 1 tab PO DAILY Ondansetron [Zofran] Med 06/06/17 12:36 Ordered 4 mg IV Q6H PRN Polyethylene Glycol 3350 [MiraLAX] Med 06/06/17 12:36 Ordered 17 gm PO DAILY PRN Potassium Rep Pharmacy to Dose [Pharmacy to Dose - Med 06/06/17 12:45 Ordered Potassium Replacement] 1 dose .XX ASDIRECTED Promethazine [Phenergan] 12.5 mg Med 06/06/17 12:36 Ordered Sodium Chloride 0.9% [Normal Saline] 50 ml IV Q6H Saccharomyces Boulardii [Florastor] Med 06/07/17 09:00 Ordered 250 mg PO DAILY Scopolamine [Transderm-Scop] Med 06/06/17 12:52 Once 1.5 mg TRDERM Q72H ONE Sodium Chloride 0.9% [Normal Saline] 1,000 ml Med 06/06/17 12:45 Ordered IV ASDIRECTED Temazepam [Restoril] Med 06/06/17 12:36 Ordered 15 mg PO BEDTIME PRN hydrALAZINE [Apresoline] Med 06/06/17 12:35 Ordered 20 mg IVPUSH Q4H PRN Blood Culture x2 Reflex Set [OM.PC] Stat Oth 06/06/17 08:28 Ordered Sequential Compression Device [OM.PC] Per Unit Routine Oth 06/06/17 12:36 Ordered Resuscitation Status Routine Resus Stat 06/06/17 12:36 Ordered Medication Orders Acetaminophen (Tylenol) 650 mg PO Q4H PRN PRN Reason: Pain (Mild 1-3)/fever Hydrocodone Bitart/Acetaminophen ([place] 325-5 Mg) 1 tab PO Q4H PRN PRN Reason: Pain (moderate 4-6) Albuterol/Ipratropium (Duoneb 3.0-0.5 Mg/3 Ml) 3 ml NEB Q4H PRN PRN Reason: Shortness Of Breath/wheezing Bisacodyl (Dulcolax) 5 mg PO DAILY PRN PRN Reason: Constipation Docusate Sodium (Colace) 100 mg PO BID PRN PRN Reason: Constipation Guaifenesin/Phenylephrine HCl (Robitussin Dm) 10 ml PO Q4H PRN PRN Reason: Cough Hydralazine HCl (Apresoline) 20 mg IVPUSH Q4H PRN PRN Reason: Hypertension Hydromorphone HCl (Dilaudid) 0.25 mg IVPUSH Q2H PRN PRN Reason: Pain (severe 7-10) Dextrose/Sodium Chloride (Dextrose 5%-Normal Saline) 1,000 mls @ 500 mls/hr IV ASDIRECTED [facility] Last Admin: 06/06/17 08:40 Dose: 500 mls/hr Promethazine HCl 12.5 mg/ (Sodium Chloride) 50.5 mls @ 100 mls/hr IV Q6H PRN PRN Reason: Nausea/Vomiting Sodium Chloride (Normal Saline) 1,000 mls @ 125 mls/hr IV ASDIRECTED [facility] Levofloxacin/Dextrose 750 mg/ (Premix) 150 mls @ 100 mls/hr IV Q24H [facility] Ketorolac Tromethamine (Toradol) 30 mg IVPUSH ONETIME [facility] Last Admin: 06/06/17 08:44 Dose: 30 mg Ketorolac Tromethamine (Toradol) 30 mg IV Q6H PRN PRN Reason: Pain (moderate 4-6) Lorazepam (Ativan) 2 mg IVPUSH Q4H PRN PRN Reason: Seizures Lorazepam (Ativan) 1 mg IV Q6H PRN PRN Reason: Anxiety Magnesium Sulfate (Pharmacy To Dose - Magnesium Replacement) 1 dose .XX ASDIRECTED [facility] Metoprolol Tartrate (Lopressor) 5 mg IVPUSH Q4H PRN PRN Reason: Tachycardia Non-Formulary Medication (Cholecalciferol (Vitamin D3) [Vitamin D3]) 1,000 units PO DAILY [facility] Non-Formulary Medication (Fish Oil/Orcas-3 Fatty Acids [Fish Oil 1,000 Mg]) 1 gm PO DAILY [facility] Non-Formulary Medication (Multivitamin) 1 tab PO DAILY [facility] Ondansetron HCl (Zofran) 4 mg IV Q6H PRN PRN Reason: Nausea/Vomiting Polyethylene Glycol (Miralax) 17 gm PO DAILY PRN PRN Reason: Constipation Potassium Chloride (Pharmacy To Dose - Potassium Replacement) 1 dose .XX ASDIRECTED [facility] Saccharomyces Boulardii (Florastor) 250 mg PO DAILY [facility] Senna/Docusate Sodium (Senna Plus) 1 tab PO BID PRN PRN Reason: Constipation Temazepam (Restoril) 15 mg PO BEDTIME PRN PRN Reason: Sleep Assessment/Plan Comment:: Assessment/Plan: Acute: Aspiration Syndrome/Pneumonitis - CXR shows right perihilar increased markings - Has a temp but no leukocytosis - PSI/PORT score is 46 points, Risk Class II, 0.6-0.9% mortality. Outpatient treatment reasonable, barring other factors affecting care - IV Levaquin 750 mg daily - Decongestant/Expectorant Q4H PRN and IS as directed - Mycoplasma/Strep pneumonia, Sputum Cx, Respiratory Panel - Influenza screening negative - CXR as indicated Gastroenteritis - Reports nausea/vomiting and watery diarrhea - Possibly ate bad food - No sick contact, recent travel outside the country, no unusual food or drink - Supportive care Hypokalemia - Mild K 3.4 - 2/2 inadequate intake - Replete and monitor Chronic: Vitamin D Deficiency Plan: Admit to the floor Resume Home Meds Routine AM Labs Additional orders as above Code status: 1
[2017-06-06] MEDS: Potassium Chloride 10 MEQ in Premix Bag 1 BAG IV SCH ×2 (13:27→16:13)
[2017-06-06] MEDS: Sodium Chloride 0.9% 1,000 ML IV SCH ×2 (13:29→21:35)
--- NOTE | 2017-06-06 14:26 | CR ---
Chest: Portable view of the chest was obtained. Comparison: Prior chest x-ray is not available. Heart size and mediastinum are normal. Mild bronchitis is suspected within the perihilar markings. Lungs otherwise are clear with no alveolar change of pneumonia. Bony structures show minimal scoliosis within the spine. Impression: 1. Mild bronchitis suspected. 2. Other incidental finding. Diagnostic code #3
[2017-06-06] MEDS: Potassium Chloride 20 MEQ Tab.ER PO SCH ×2 (16:04→21:23)
[2017-06-06] MEDS: Ketorolac 30 MG/ML SDV IV PRN (16:09)
[2017-06-06] MEDS: Acetaminophen 325 MG Tab PO PRN (21:23)
[2017-06-06] MEDS: Famotidine 20 MG/2 ML SDV IVPUSH SCH (21:23)
[2017-06-06] MEDS: Temazepam 15 MG Cap PO PRN (21:35)
[2017-06-07] MEDS: Ketorolac 30 MG/ML SDV IV PRN (03:02)
[2017-06-07] MEDS: Sodium Chloride 0.9% 1,000 ML IV SCH ×2 (05:27→13:36)
[2017-06-07] MEDS: Acetaminophen 325 MG Tab PO PRN ×2 (07:18→17:57)
--- NOTE | 2017-06-07 08:34 | PCM.PN ---
- General Info Date of Service: 06/07/17 Admission Dx/Problem (Free Text): Admission Diagnosis/Problem Admission Diagnosis/Problem Pneumonia Subjective Update: Follow Up Functional Status: Reports: Pain Controlled, Tolerating Diet, Ambulating, Urinating - Review of Systems General: Denies: Fever, Weakness, Fatigue, Malaise, Chills HEENT: Reports: No Symptoms Pulmonary: Denies: Shortness of Breath, Cough Cardiovascular: Denies: Chest Pain, Palpitations, Dyspnea on Exertion, Lightheadedness Gastrointestinal: Reports: Decreased Appetite. Denies: Abdominal Pain, Nausea, Vomiting Genitourinary: Reports: No Symptoms Musculoskeletal: Reports: Other (back ache) Skin: Reports: No Symptoms Neurological: Denies: Confusion, Difficulty Walking, Weakness, Gait Disturbance Psychiatric: Denies: Depression, Anxiety, Agitation, Hallucinations Systems Review Comment:: No significant overnight or acute issues. She slept well last night. She reports back ache and reduced appetite this AM. She is afebrile w/o leukocytosis. Her Mg is 1.6 ad CRP is slightly up at 10.9. She has no other complaints. - Patient Data Vitals - Most Recent: Last Vital Signs Temp 36.7 C 06/07/17 08:14 Pulse 88 06/07/17 08:14 Resp 16 06/07/17 08:14 BP 142/82 H 06/07/17 08:14 Pulse Ox 92 L 06/07/17 08:14 Weight - Most Recent: 88.723 kg I&O - Last 24 Hours: Intake & Output 06/06/17 06/07/17 06/07/17 22:59 06:59 14:59 Intake Total 50 2307 Output Total 100 500 Balance -50 1807 Lab Results Last 24 Hours: Laboratory Results - last 24 hr 06/06/17 06/06/17 06/06/17 Range/Units 08:20 08:20 08:20 WBC 7.08 (3.98-10.04) K/mm3 RBC 4.52 (3.98-5.22) M/mm3 Hgb 14.8 (11.2-15.7) gm/L Hct 44.2 (34.1-44.9) % MCV 97.8 H (79.4-94.8) fl MCH 32.7 H (25.6-32.2) pg MCHC 33.5 (32.2-35.5) g/dl RDW Std Deviation 46.1 (36.4-46.3) fL Plt Count 232 (182-369) K/mm3 MPV 9.4 (9.4-12.3) fl Neut % (Auto) (34.0-71.1) % Lymph % (Auto) (19.3-51.7) % [place] % (Auto) (4.7-12.5) % Eos % (Auto) (0.7-5.8) Baso % (Auto) (0.1-1.2) % Neut # (Auto) (1.56-6.13) K/mm3 Lymph # (Auto) (1.18-3.74) K/mm3 [place] # (Auto) (0.24-0.36) K/mm3 Eos # (Auto) (0.04-0.36) K/mm3 Baso # (Auto) (0.01-0.08) K/mm3 Neutrophils % (Manual) 92 H (40-60) % Band Neutrophils % 0 (0-10) % Lymphocytes % (Manual) 6 L (20-40) % Atypical Lymphs % 0 % Monocytes % (Manual) 2 (2-10) % Eosinophils % (Manual) 0 L (0.7-5.8) % Basophils % (Manual) 0 L (0.1-1.2) Platelet Estimate Adequate RBC Morph Comment Normal Sodium 140 (136-145) mEq/L Potassium 3.4 L (3.5-5.1) mEq/L Chloride 104 (98-107) mEq/L Carbon Dioxide 25 (21-32) mEq/L Anion Gap 14.4 (5-15) BUN 14 (7-18) mg/dL Creatinine 0.8 (0.55-1.02) mg/dL Est Cr Clr Drug Dosing 79.21 mL/min Estimated GFR (MDRD) > 60 (>60) mL/min BUN/Creatinine Ratio 17.5 (14-18) Glucose 129 H (74-106) mg/dL Calcium 9.1 (8.5-10.1) mg/dL Magnesium (1.8-2.4) mg/dl Total Bilirubin 1.3 H (0.2-1.0) mg/dL AST 20 (15-37) U/L ALT 39 (14-59) U/L Alkaline Phosphatase 74 (46-116) U/L C-Reactive Protein 2.1 H* (<1.0) mg/dL Total Protein 7.4 (6.4-8.2) g/dl Albumin 4.1 (3.4-5.0) g/dl Globulin 3.3 gm/dL Albumin/Globulin Ratio 1.2 (1-2) Urine Color (Yellow) Urine Appearance (Clear) Urine pH (5.0-8.0) Ur Specific [place] (1.005-1.030) Urine Protein (Negative) Urine Glucose (UA) (Negative) Urine Ketones (Negative) Urine Occult Blood (Negative) Urine Nitrite (Negative) Urine Bilirubin (Negative) Urine Urobilinogen (0.2-1.0) Ur Leukocyte Esterase (Negative) Urine RBC (0-5) /hpf Urine WBC (0-5) /hpf Ur Epithelial Cells (0-5) /hpf Calcium Oxalate Crystal (NONE) Urine Bacteria (FEW) /hpf Urine Mucus (FEW) /hpf Mycoplasma pneumon IgM Negative (NEGATIVE) 06/06/17 06/07/17 06/07/17 Range/Units 11:19 06:45 06:45 WBC 4.51 (3.98-10.04) K/mm3 RBC 4.10 (3.98-5.22) M/mm3 Hgb 13.2 (11.2-15.7) gm/L Hct 40.5 (34.1-44.9) % MCV 98.8 H (79.4-94.8) fl MCH 32.2 (25.6-32.2) pg MCHC 32.6 (32.2-35.5) g/dl RDW Std Deviation 46.6 H (36.4-46.3) fL Plt Count 181 L (182-369) K/mm3 MPV 9.5 (9.4-12.3) fl Neut % (Auto) 74.9 H (34.0-71.1) % Lymph % (Auto) 18.0 L (19.3-51.7) % [place] % (Auto) 5.8 (4.7-12.5) % Eos % (Auto) 0.9 (0.7-5.8) Baso % (Auto) 0.2 (0.1-1.2) % Neut # (Auto) 3.38 (1.56-6.13) K/mm3 Lymph # (Auto) 0.81 L (1.18-3.74) K/mm3 [place] # (Auto) 0.26 (0.24-0.36) K/mm3 Eos # (Auto) 0.04 (0.04-0.36) K/mm3 Baso # (Auto) 0.01 (0.01-0.08) K/mm3 Neutrophils % (Manual) (40-60) % Band Neutrophils % (0-10) % Lymphocytes % (Manual) (20-40) % Atypical Lymphs % % Monocytes % (Manual) (2-10) % Eosinophils % (Manual) (0.7-5.8) % Basophils % (Manual) (0.1-1.2) Platelet Estimate RBC Morph Comment Sodium 140 (136-145) mEq/L Potassium 3.6 (3.5-5.1) mEq/L Chloride 107 (98-107) mEq/L Carbon Dioxide 24 (21-32) mEq/L Anion Gap 12.6 (5-15) BUN 11 (7-18) mg/dL Creatinine 0.7 (0.55-1.02) mg/dL Est Cr Clr Drug Dosing 90.53 mL/min Estimated GFR (MDRD) > 60 (>60) mL/min BUN/Creatinine Ratio 15.7 (14-18) Glucose 96 (74-106) mg/dL Calcium 8.1 L (8.5-10.1) mg/dL Magnesium 1.6 L (1.8-2.4) mg/dl Total Bilirubin (0.2-1.0) mg/dL AST (15-37) U/L ALT (14-59) U/L Alkaline Phosphatase (46-116) U/L C-Reactive Protein 10.9 H* (<1.0) mg/dL Total Protein (6.4-8.2) g/dl Albumin (3.4-5.0) g/dl Globulin gm/dL Albumin/Globulin Ratio (1-2) Urine Color Light yellow (Yellow) Urine Appearance Clear (Clear) Urine pH 6.5 (5.0-8.0) Ur Specific [place] 1.015 (1.005-1.030) Urine Protein Negative (Negative) Urine Glucose (UA) Negative (Negative) Urine Ketones Negative (Negative) Urine Occult Blood Negative (Negative) Urine Nitrite Negative (Negative) Urine Bilirubin Negative (Negative) Urine Urobilinogen 1.0 (0.2-1.0) Ur Leukocyte Esterase Negative (Negative) Urine RBC 0-5 (0-5) /hpf Urine WBC 0-5 (0-5) /hpf Ur Epithelial Cells 0-5 (0-5) /hpf Calcium Oxalate Crystal Few H (NONE) Urine Bacteria Few (FEW) /hpf Urine Mucus Not seen (FEW) /hpf Mycoplasma pneumon IgM (NEGATIVE) Kieran Results Last 24 Hours: Microbiology 06/06/17 08:40 Influenza Type A Antigen Screen - Final Nasal Aspirate, Unspecified NEGATIVE INFLUENZA A VIRUS AG Influenza Type B Antigen Screen - Final NEGATIVE INFLUENZA B VIRUS AG Med Orders - Current: Current Medications Acetaminophen (Tylenol) 650 mg PO Q4H PRN PRN Reason: Pain (Mild 1-3)/fever Last Admin: 06/07/17 07:18 Dose: 650 mg Hydrocodone Bitart/Acetaminophen ([place] 325-5 Mg) 1 tab PO Q4H PRN PRN Reason: Pain (moderate 4-6) Albuterol/Ipratropium (Duoneb 3.0-0.5 Mg/3 Ml) 3 ml NEB Q4H PRN PRN Reason: Shortness Of Breath/wheezing Bisacodyl (Dulcolax) 5 mg PO DAILY PRN PRN Reason: Constipation Cholecalciferol (Vitamin D3) 1,000 units PO DAILY [facility] Docusate Sodium (Colace) 100 mg PO BID PRN PRN Reason: Constipation Famotidine (Pepcid) 20 mg IVPUSH BID [facility] Last Admin: 06/06/17 21:23 Dose: 20 mg Fish Oil (Fish Oil) 1 gm PO DAILY [facility] Guaifenesin/Phenylephrine HCl (Robitussin Dm) 10 ml PO Q4H PRN PRN Reason: Cough Hydralazine HCl (Apresoline) 20 mg IVPUSH Q4H PRN PRN Reason: Hypertension Hydromorphone HCl (Dilaudid) 0.25 mg IVPUSH Q2H PRN PRN Reason: Pain (severe 7-10) Promethazine HCl 12.5 mg/ (Sodium Chloride) 50.5 mls @ 100 mls/hr IV Q6H PRN PRN Reason: Nausea/Vomiting Sodium Chloride (Normal Saline) 1,000 mls @ 125 mls/hr IV ASDIRECTED [facility] Last Admin: 06/07/17 05:27 Dose: 125 mls/hr Levofloxacin/Dextrose 750 mg/ (Premix) 150 mls @ 100 mls/hr IV Q24H [facility] Ketorolac Tromethamine (Toradol) 30 mg IVPUSH ONETIME [facility] Last Admin: 06/06/17 08:44 Dose: 30 mg Ketorolac Tromethamine (Toradol) 30 mg IV Q6H PRN PRN Reason: Pain (moderate 4-6) Last Admin: 06/07/17 03:02 Dose: 30 mg Lorazepam (Ativan) 2 mg IVPUSH Q4H PRN PRN Reason: Seizures Lorazepam (Ativan) 1 mg IV Q6H PRN PRN Reason: Anxiety Magnesium Sulfate (Pharmacy To Dose - Magnesium Replacement) 0 dose .XX ASDIRECTED PRN PRN Reason: RX TO WATCH MAG LEVELS Metoprolol Tartrate (Lopressor) 5 mg IVPUSH Q4H PRN PRN Reason: Tachycardia Multivitamins (Thera) 1 each PO DAILY [facility] Ondansetron HCl (Zofran) 4 mg IV Q6H PRN PRN Reason: Nausea/Vomiting Polyethylene Glycol (Miralax) 17 gm PO DAILY PRN PRN Reason: Constipation Potassium Chloride (Pharmacy To Dose - Potassium Replacement) 0 dose .XX ASDIRECTED PRN PRN Reason: RX TO WATCH K LEVELS Saccharomyces Boulardii (Florastor) 250 mg PO DAILY [facility] Senna/Docusate Sodium (Senna Plus) 1 tab PO BID PRN PRN Reason: Constipation Temazepam (Restoril) 15 mg PO BEDTIME PRN PRN Reason: Sleep Last Admin: 06/06/17 21:35 Dose: 15 mg Discontinued Medications Acetaminophen (Tylenol) 975 mg PO NOW ONE Stop: 06/06/17 08:30 Last Admin: 06/06/17 09:07 Dose: 975 mg Famotidine (Pepcid) 20 mg IVPUSH ONETIME ONE Stop: 06/06/17 12:54 Last Admin: 06/06/17 13:29 Dose: 20 mg Dextrose/Sodium Chloride (Dextrose 5%-Normal Saline) 1,000 mls @ 500 mls/hr IV ASDIRECTED [facility] Last Admin: 06/06/17 08:40 Dose: 500 mls/hr Levofloxacin/Dextrose 750 mg/ (Premix) 150 mls @ 100 mls/hr IV ONETIME ONE Stop: 06/06/17 10:57 Last Admin: 06/06/17 09:38 Dose: 100 mls/hr Potassium Chloride 10 meq/ (Premix) 100 mls @ 100 mls/hr IV Q1H [facility] Stop: 06/06/17 17:59 Last Admin: 06/06/17 16:13 Dose: Not Given Metoclopramide HCl (Reglan) 7.5 mg IVPUSH ONETIME ONE Stop: 06/06/17 11:40 Last Admin: 06/06/17 11:48 Dose: 7.5 mg Ondansetron HCl (Zofran) 4 mg IVPUSH ONETIME ONE Stop: 06/06/17 08:30 Last Admin: 06/06/17 08:41 Dose: 4 mg Potassium Chloride (Klor-Con M20) 40 meq PO Q4H CHRISTIANO Stop: 06/06/17 20:01 Last Admin: 06/06/17 21:23 Dose: 40 meq Scopolamine (Transderm-Scop) 1.5 mg TRDERM Q72H ONE Stop: 06/06/17 12:53 Last Admin: 06/06/17 13:28 Dose: 1.5 mg - Exam General: Alert, Oriented, Cooperative, No Acute Distress HEENT: Pupils Equal, Pupils Reactive, EOMI, Mucous Membr. Moist/[place] Neck: Supple, Trachea Midline, No JVD, No Thyromegaly Lungs: Clear to Auscultation, Normal Respiratory Effort Cardiovascular: Regular Rate, Regular Rhythm GI/Abdominal Exam: Normal Bowel Sounds, Soft, Non-Tender, No Organomegaly, No Abnormal Bruit, No Mass, Pelvis Stable (Female) Exam: Deferred Back Exam: Normal Inspection, Decreased Range of Motion Extremities: Normal Inspection, Normal Range of Motion, Non-Tender, No Pedal Edema, Normal Capillary Refill Skin: Warm, Dry, Intact Neurological: No New Focal Deficit Psy/Mental Status: Alert, Normal Affect, Normal Mood - Problem List Review Problem List Initiated/Reviewed/Updated: Yes - My Orders Last 24 Hours: My Active Orders 06/06/17 11:19 STREP PNEUMONIAE ANTIGEN [MREF] Stat 06/06/17 12:35 LORazepam [Ativan] 2 mg IVPUSH Q4H PRN Metoprolol Tartrate [Lopressor] 5 mg IVPUSH Q4H PRN hydrALAZINE [Apresoline] 20 mg IVPUSH Q4H PRN 06/06/17 12:36 Height and Weight [RC] 04 Intake and Output [RC] 04,16 Oxygen Therapy [RC] PRN Up ad Vicky [RC] ASDIRECTED VTE/DVT Education [RC] DAILY Acetaminophen [Tylenol] 650 mg PO Q4H PRN Acetaminophen/HYDROcodone [[place] 325-5 MG] 1 tab PO Q4H PRN Albuterol/Ipratropium [DuoNeb 3.0-0.5 MG/3 ML] 3 ml NEB Q4H PRN Bisacodyl [Dulcolax] 5 mg PO DAILY PRN Docusate Sodium [Colace] 100 mg PO BID PRN Docusate Sodium/Sennosides [Senna Plus] 1 tab PO BID PRN HYDROmorphone [Dilaudid] 0.25 mg IVPUSH Q2H PRN Ketorolac [Toradol] 30 mg IV Q6H PRN LORazepam [Ativan] 1 mg IV Q6H PRN Ondansetron [Zofran] 4 mg IV Q6H PRN Polyethylene Glycol 3350 [MiraLAX] 17 gm PO DAILY PRN Promethazine [Phenergan] 12.5 mg Sodium Chloride 0.9% [Normal Saline] 50 ml IV Q6H Temazepam [Restoril] 15 mg PO BEDTIME PRN Sequential Compression Device [OM.PC] Per Unit Routine Resuscitation Status Routine 06/06/17 12:37 RT Aerosol Therapy [RC] ASDIRECTED 06/06/17 12:38 Respiratory Care Assess and Treatment [CONS] Routine CULTURE SPUTUM + SMEAR [RM] Stat 06/06/17 12:41 Incentive Spirometry [RT Incentive Spirometry] [RC] ASDIRECTED Dextromethorphan/guaiFENesin [Robitussin DM] 10 ml PO Q4H PRN 06/06/17 12:45 Magnesium Rep Pharmacy to Dose [Pharmacy to Dose - Magnesium Replacement] 0 dose .XX ASDIRECTED PRN Potassium Rep Pharmacy to Dose [Pharmacy to Dose - Potassium Replacement] 0 dose .XX ASDIRECTED PRN Sodium Chloride 0.9% [Normal Saline] 1,000 ml IV ASDIRECTED 06/06/17 20:15 RESPIRATORY PANEL BY PCR [MREF] Stat 06/06/17 21:00 Famotidine [Pepcid] 20 mg IVPUSH BID 06/06/17 Lunch Regular Diet [DIET] 06/07/17 09:00 Cholecalciferol (Vitamin D3) [Vitamin D3] 1,000 units PO DAILY Fish Oil/[place]-3 Fatty Acids [Fish Oil] 1 gm PO DAILY Levofloxacin/Dextrose 5%-Water [Levaquin in D5W 750 MG/150 ML] 750 mg Premix Bag 1 bag IV Q24H Multivitamins,Therapeutic [Thera] 1 each PO DAILY Saccharomyces Boulardii [Florastor] 250 mg PO DAILY 06/08/17 05:11 BASIC METABOLIC PANEL,BMP [CHEM] AM C-REACTIVE PROTEIN [CHEM] AM CBC WITH AUTO DIFF [HEME] AM MAGNESIUM [CHEM] AM 06/09/17 05:11 BASIC METABOLIC PANEL,BMP [CHEM] AM C-REACTIVE PROTEIN [CHEM] AM CBC WITH AUTO DIFF [HEME] AM MAGNESIUM [CHEM] AM 06/10/17 05:11 BASIC METABOLIC PANEL,BMP [CHEM] AM C-REACTIVE PROTEIN [CHEM] AM CBC WITH AUTO DIFF [HEME] AM MAGNESIUM [CHEM] AM - Plan Plan:: Assessment/Plan: Acute: Aspiration Syndrome/Pneumonitis - CXR shows right perihilar increased markings - Has a temp but no leukocytosis - PSI/PORT score is 46 points, Risk Class II, 0.6-0.9% mortality. Outpatient treatment reasonable, barring other factors affecting care - CRP 2.7 ---> 10.9 - Continue IV Levaquin 750 mg daily - Decongestant/Expectorant Q4H PRN and IS as directed - Mycoplasma pneumonia Ag negative - Strep pneumonia, Sputum Cx, Respiratory Panel-all pending - Influenza screening negative - CXR as indicated Gastroenteritis, Improved - Reports nausea/vomiting and watery diarrhea - Possibly ate bad food - No sick contact, recent travel outside the country, no unusual food or drink - Still has lingering diarrhea - Continue supportive care Mild Hypomagnesemia - Mg 1.6 - 2/2 GI Loss - Replete and Monitor Reduced Appetite - Offered stimulant--> refused Resolved: S/p Hypokalemia - Mild K 3.4--> 3.6 - 2/2 inadequate intake - Replete and monitor Chronic: Vitamin D Deficiency Plan: She is clinically stable Continue current treatment Routine AM Labs Encourage to ambulate as tolerated and use IS as directed Repeat CXR in AM Additional orders as above Code status: 1 Possible d/c in 1-2 days
[2017-06-07] MEDS ORDERED: Magnesium Oxide 400 MG Tab PO ONE (10:00)
[2017-06-07] MEDS: Saccharomyces Boulardii (Probiotic) 250 MG Cap PO SCH (10:31)
[2017-06-07] MEDS: Cholecalciferol (Vitamin D3) 1,000 Unit Tab PO SCH (10:32)
[2017-06-07] MEDS: Multivitamins,Therapeutic Tab PO SCH (10:32)
[2017-06-07] MEDS: Levofloxacin/Dextrose 5%-Water 750 MG in Premix Bag 1 BAG IV SCH (10:32)
[2017-06-07] MEDS: Famotidine 20 MG/2 ML SDV IVPUSH SCH (10:32)
[2017-06-07] MEDS: Fish Oil/Omega-3 Fatty Acids 1 Gm Cap PO SCH (10:32)
[2017-06-07] MEDS: Famotidine 20 MG Tab PO SCH (20:27)
[2017-06-07] MEDS: Temazepam 15 MG Cap PO PRN (22:00)
[2017-06-08] MEDS: Saccharomyces Boulardii (Probiotic) 250 MG Cap PO SCH (08:25)
[2017-06-08] MEDS: Famotidine 20 MG Tab PO SCH (08:25)
[2017-06-08] MEDS: Cholecalciferol (Vitamin D3) 1,000 Unit Tab PO SCH (08:25)
[2017-06-08] MEDS: Fish Oil/Omega-3 Fatty Acids 1 Gm Cap PO SCH (08:25)
[2017-06-08] MEDS: Levofloxacin/Dextrose 5%-Water 750 MG in Premix Bag 1 BAG IV SCH (08:25)
[2017-06-08] MEDS: Multivitamins,Therapeutic Tab PO SCH (08:25)
[2017-06-08] MEDS ORDERED: Potassium Chloride 20 MEQ Tab.ER PO ONE (09:00)
--- NOTE | 2017-06-08 14:30 | CR ---
Chest: Portable view of the chest was obtained. Comparison: Prior chest x-ray of 06/06/17. Heart size appears within normal limits for portable technique. Tortuous thoracic aorta is seen. Azygos lobe is noted. Lungs show no acute parenchymal change. Bony structures show an old left upper rib fracture which appears healed. Impression: 1. Incidental findings. Nothing acute is appreciated on portable chest x-ray. Diagnostic code #2
--- NOTE | 2017-06-08 15:18 | PCM.DCSUM1 ---
Discharge Summary - Hospital Course HPI Initial Comments: 57-year-old female presents to the ED due to acute onset of illness with high fever chills with rigors. Diffuse generalized myalgia headache nausea vomiting and diarrhea and nonproductive cough. All the signs and symptoms of influenza type B. Symptoms developed over the last 12 hours or so. Came on very acutely. She is normally very healthy. 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 Influenza B is still been prevalent in her community. Had not taken anything for fever relief. She reports sweats diaphoresis and then severe chills off and on throughout the night. Vomited up her supper last night and has had 2 loose stools overnight. No blood. States she is passing her urine but in small quantities. No burning or urgency. Patient does mention that she's been cleaning out the attic in her parents house with dust up there for 30-35 years. Initially was not wearing a mask but was wearing while mask the last few days. She did not witness any mouse poop per se but mentions possibility of to virus exposure. This be unlikely in this environment. - Discharge Data Discharge Date: 06/08/17 (ADMIT 06/06/17) Discharge Disposition: Home, Self-Care 01 Condition: Good - Discharge Diagnosis/Problem(s) (1) Nausea and vomiting in adult SNOMED Code(s): 89362907 ICD Code: R11.2 - NAUSEA WITH VOMITING, UNSPECIFIED Status: Acute Priority: High Current Visit: Yes (2) Pneumonitis SNOMED Code(s): 732223194 ICD Code: J18.9 - PNEUMONIA, UNSPECIFIED ORGANISM Status: Acute Priority : High Current Visit: Yes - Patient Summary/Data Operative Procedure(s) Performed: none Complications: none Consults: Consultations 06/06/17 12:38 Respiratory Care Assess and Treatment [CONS] Routine Labs Pending at D/C: none Recommended Follow-up Testing/Procedures: Follow up with PCP in 7-10 days. Planned Operative Procedure(s) after DC: none Hospital Course: Assessment/Plan: Acute: Aspiration Syndrome/Pneumonitis - CXR shows right perihilar increased markings - Has a temp but no leukocytosis - PSI/PORT score is 46 points, Risk Class II, 0.6-0.9% mortality. Outpatient treatment reasonable, barring other factors affecting care - CRP 2.7 ---> 10.9-->12.2 - Continue IV Levaquin 750 mg daily--> D/C with PO 750 x3D - Decongestant/Expectorant Q4H PRN and IS as directed--> Continue Spirometry at home - Mycoplasma pneumonia Ag negative - Strep pneumonia, Respiratory Panel-negative - Influenza screening negative - Unable to collect sputum culture, no sputum per pt - Repeat CXR 06/08/17--> nothing acute Hypokalemia - Mild K 3.4--> 3.6-->3.3 - 2/2 inadequate intake - Replete and monitor Resolved: Gastroenteritis, Improved to resolved - Reports nausea/vomiting and watery diarrhea--> No N/V/D today - Possibly ate bad food - No sick contact, recent travel outside the country, no unusual food or drink - Continue supportive care Mild Hypomagnesemia - Mg 1.6-->1.8 - 2/2 GI Loss - Replete and Monitor Reduced Appetite - Offered stimulant--> refused - States her appetite has returned today Chronic: Vitamin D Deficiency Plan: She is clinically stable Continue current treatment Routine AM Labs Encourage to ambulate as tolerated and use IS as directed Repeat CXR in AM Additional orders as above Code status: 1 D/C home today Full code Delia has recovered quite well after being admitted for Pneumonitis and Gastroenteritis. She had multiple tests done, all have been negative except for CXR showed right perihilar increased markings. This was most likely a Pneumonitis based off of these findings and history of her breathing in attic dust. Repeat CXR showed nothing acute. She should follow-up with her primary care provider in 7-10 days. She was discharged home with a 3 day supply of antibiotic to finish treatment. Her potassium was low at 3.3 and should be rechecked with her primary care provider. She will be discharged home today. She should return to work on Wednesday. - Patient Instructions Diet: Usual Diet as Tolerated Activity: As Tolerated Driving: May Drive Today Showering/Bathing: May Shower Notify Provider of: Fever, Increased Pain, Nausea and/or Vomiting Other/Special Instructions: Return to ED if increased coughing, SOB, fever/ chills, nausea/vomiting/diarrhea, worsening of symptoms - Discharge Plan Prescriptions/Med Rec: Levofloxacin 750 mg PO DAILY 3 Days #3 tablet Home Medications: Home Meds Cholecalciferol (Vitamin D3) [Vitamin D3] 1,000 units PO DAILY 04/01/17 [History ] Fish Oil/[place]den-3 Fatty Acids [Fish Oil 1,000 MG] 1 gm PO DAILY 04/01/17 [History ] Multivitamin [Daily Grant] 1 tab PO DAILY 04/01/17 [History] Levofloxacin 750 mg PO DAILY 3 Days #3 tablet 06/08/17 [Rx] Patient Handouts: Nausea and Vomiting, Adult, [id number], Aspiration Pneumonia, Community-Acquired Pneumonia, Adult, [id number] Referrals: Dex Robbins [Physician] - - Discharge Summary/Plan Comment DC Time >30 min.: Yes (40) - General Info Date of Service: 06/08/17 (ADMIT 06/06/17) Admission Dx/Problem (Free Text: Admission Diagnosis/Problem Admission Diagnosis/Problem Pneumonia Subjective Update: In to see Delia today. She is lying in bed. Overall she is doing quite well. She has no complaints. She has been sleeping well. Good appetite. Ambulating. Pain is controlled. No fever, chills, nausea, vomiting, diarrhea. She still has a slight nonproductive cough. Urinating. Incentive Spirometry. No concerns from nursing. Her appetite is returning. Will be DCd back to home today with a 3 day supply of antibiotics to complete her treatment. Functional Status: Reports: Pain Controlled, Tolerating Diet, Ambulating, Urinating, Incentive Spirometry - Review of Systems General: Reports: No Symptoms. Denies: Fever, Weakness, Fatigue, Chills HEENT: Reports: No Symptoms Pulmonary: Reports: Shortness of Breath (on exertion only), Cough (improving, non productive). Denies: Sputum Cardiovascular: Reports: Dyspnea on Exertion. Denies: Chest Pain, Palpitations , Edema, Lightheadedness Gastrointestinal: Reports: No Symptoms Genitourinary: Reports: No Symptoms. Denies: Dysuria, Frequency, Burning, Pain , Urgency Musculoskeletal: Reports: No Symptoms Skin: Reports: No Symptoms Neurological: Reports: No Symptoms Psychiatric: Reports: No Symptoms - Patient Data Vitals - Most Recent: Last Vital Signs Temp 98.2 F 06/08/17 06:36 Pulse 57 L 06/08/17 06:36 Resp 16 06/08/17 06:36 BP 121/69 06/08/17 06:36 Pulse Ox 93 L 06/08/17 06:36 Weight - Most Recent: 194 lb I&O - Last 24 hours: Intake & Output 06/08/17 06/08/17 06/08/17 06:59 14:59 22:59 Intake Total 1000 240 Output Total 2400 Balance -1400 240 Lab Results - Last 24 hrs: Laboratory Results - last 24 hr 06/08/17 06/08/17 Range/Units 05:33 05:33 WBC 3.63 L (3.98-10.04) K/mm3 RBC 3.99 (3.98-5.22) M/mm3 Hgb 13.4 (11.2-15.7) gm/L Hct 39.1 (34.1-44.9) % MCV 98.0 H (79.4-94.8) fl MCH 33.6 H (25.6-32.2) pg MCHC 34.3 (32.2-35.5) g/dl RDW Std Deviation 45.9 (36.4-46.3) fL Plt Count 181 L (182-369) K/mm3 MPV 9.7 (9.4-12.3) fl Neut % (Auto) 48.4 (34.0-71.1) % Lymph % (Auto) 37.5 (19.3-51.7) % Luce % (Auto) 10.5 (4.7-12.5) % Eos % (Auto) 3.0 (0.7-5.8) Baso % (Auto) 0.6 (0.1-1.2) % Neut # (Auto) 1.76 (1.56-6.13) K/mm3 Lymph # (Auto) 1.36 (1.18-3.74) K/mm3 Luce # (Auto) 0.38 H (0.24-0.36) K/mm3 Eos # (Auto) 0.11 (0.04-0.36) K/mm3 Baso # (Auto) 0.02 (0.01-0.08) K/mm3 Sodium 137 (136-145) mEq/L Potassium 3.3 L (3.5-5.1) mEq/L Chloride 105 (98-107) mEq/L Carbon Dioxide 25 (21-32) mEq/L Anion Gap 10.3 (5-15) BUN 7 (7-18) mg/dL Creatinine 0.7 (0.55-1.02) mg/dL Est Cr Clr Drug Dosing 90.53 mL/min Estimated GFR (MDRD) > 60 (>60) mL/min BUN/Creatinine Ratio 10.0 L (14-18) Glucose 92 (74-106) mg/dL Calcium 8.9 (8.5-10.1) mg/dL Magnesium 1.8 (1.8-2.4) mg/dl C-Reactive Protein 12.2 H* (<1.0) mg/dL PARDEEP Results - Last 24 hrs: Microbiology 06/06/17 09:20 Aerobic Blood Culture - Preliminary Blood - Venous - Lab Draw NO GROWTH AFTER 2 DAYS Anaerobic Blood Culture - Preliminary NO GROWTH AFTER 2 DAYS 06/06/17 09:13 Aerobic Blood Culture - Preliminary Blood - Venous NO GROWTH AFTER 2 DAYS Anaerobic Blood Culture - Preliminary NO GROWTH AFTER 2 DAYS 06/06/17 20:15 Respiratory Virus Panel (PCR) - Final Nasopharyngeal Swab 06/06/17 11:19 Streptococcus pneumoniae Antigen (M - Final Urine Med Orders - Current: Current Medications Acetaminophen (Tylenol) 650 mg PO Q4H PRN PRN Reason: Pain (Mild 1-3)/fever Last Admin: 06/07/17 17:57 Dose: 650 mg Hydrocodone Bitart/Acetaminophen ([place] 325-5 Mg) 1 tab PO Q4H PRN PRN Reason: Pain (moderate 4-6) Albuterol/Ipratropium (Duoneb 3.0-0.5 Mg/3 Ml) 3 ml NEB Q4H PRN PRN Reason: Shortness Of Breath/wheezing Bisacodyl (Dulcolax) 5 mg PO DAILY PRN PRN Reason: Constipation Cholecalciferol (Vitamin D3) 1,000 units PO DAILY [facility] Last Admin: 06/08/17 08:25 Dose: 1,000 units Docusate Sodium (Colace) 100 mg PO BID PRN PRN Reason: Constipation Famotidine (Pepcid) 20 mg PO BID [facility] Last Admin: 06/08/17 08:25 Dose: 20 mg Fish Oil (Fish Oil) 1 gm PO DAILY [facility] Last Admin: 06/08/17 08:25 Dose: 1 gm Guaifenesin/Phenylephrine HCl (Robitussin Dm) 10 ml PO Q4H PRN PRN Reason: Cough Hydralazine HCl (Apresoline) 20 mg IVPUSH Q4H PRN PRN Reason: Hypertension Hydromorphone HCl (Dilaudid) 0.25 mg IVPUSH Q2H PRN PRN Reason: Pain (severe 7-10) Promethazine HCl 12.5 mg/ (Sodium Chloride) 50.5 mls @ 100 mls/hr IV Q6H PRN PRN Reason: Nausea/Vomiting Levofloxacin/Dextrose 750 mg/ (Premix) 150 mls @ 100 mls/hr IV Q24H [facility] Last Admin: 06/08/17 08:25 Dose: 100 mls/hr Ketorolac Tromethamine (Toradol) 30 mg IV Q6H PRN PRN Reason: Pain (moderate 4-6) Last Admin: 06/07/17 03:02 Dose: 30 mg Lorazepam (Ativan) 2 mg IVPUSH Q4H PRN PRN Reason: Seizures Lorazepam (Ativan) 1 mg IV Q6H PRN PRN Reason: Anxiety Magnesium Sulfate (Pharmacy To Dose - Magnesium Replacement) 0 dose .XX ASDIRECTED PRN PRN Reason: RX TO WATCH MAG LEVELS Metoprolol Tartrate (Lopressor) 5 mg IVPUSH Q4H PRN PRN Reason: Tachycardia Multivitamins (Thera) 1 each PO DAILY [facility] Last Admin: 06/08/17 08:25 Dose: 1 each Ondansetron HCl (Zofran) 4 mg IV Q6H PRN PRN Reason: Nausea/Vomiting Polyethylene Glycol (Miralax) 17 gm PO DAILY PRN PRN Reason: Constipation Potassium Chloride (Pharmacy To Dose - Potassium Replacement) 0 dose .XX ASDIRECTED PRN PRN Reason: RX TO WATCH K LEVELS Saccharomyces Boulardii (Florastor) 250 mg PO DAILY [facility] Last Admin: 06/08/17 08:25 Dose: 250 mg Senna/Docusate Sodium (Senna Plus) 1 tab PO BID PRN PRN Reason: Constipation Temazepam (Restoril) 15 mg PO BEDTIME PRN PRN Reason: Sleep Last Admin: 06/07/17 22:00 Dose: 15 mg Discontinued Medications Acetaminophen (Tylenol) 975 mg PO NOW ONE Stop: 06/06/17 08:30 Last Admin: 06/06/17 09:07 Dose: 975 mg Famotidine (Pepcid) 20 mg IVPUSH ONETIME ONE Stop: 06/06/17 12:54 Last Admin: 06/06/17 13:29 Dose: 20 mg Famotidine (Pepcid) 20 mg IVPUSH BID [facility] Last Admin: 06/07/17 10:32 Dose: 20 mg Dextrose/Sodium Chloride (Dextrose 5%-Normal Saline) 1,000 mls @ 500 mls/hr IV ASDIRECTED [facility] Last Admin: 06/06/17 08:40 Dose: 500 mls/hr Levofloxacin/Dextrose 750 mg/ (Premix) 150 mls @ 100 mls/hr IV ONETIME ONE Stop: 06/06/17 10:57 Last Admin: 06/06/17 09:38 Dose: 100 mls/hr Sodium Chloride (Normal Saline) 1,000 mls @ 125 mls/hr IV ASDIRECTED [facility] Last Admin: 06/07/17 13:36 Dose: 125 mls/hr Potassium Chloride 10 meq/ (Premix) 100 mls @ 100 mls/hr IV Q1H [facility] Stop: 06/06/17 17:59 Last Admin: 06/06/17 16:13 Dose: Not Given Ketorolac Tromethamine (Toradol) 30 mg IVPUSH ONETIME [facility] Last Admin: 06/06/17 08:44 Dose: 30 mg Magnesium Oxide (Magnesium Oxide) 800 mg PO ONETIME ONE Stop: 06/07/17 10:01 Last Admin: 06/07/17 10:32 Dose: 800 mg Metoclopramide HCl (Reglan) 7.5 mg IVPUSH ONETIME ONE Stop: 06/06/17 11:40 Last Admin: 06/06/17 11:48 Dose: 7.5 mg Ondansetron HCl (Zofran) 4 mg IVPUSH ONETIME ONE Stop: 06/06/17 08:30 Last Admin: 06/06/17 08:41 Dose: 4 mg Potassium Chloride (Klor-Con M20) 40 meq PO Q4H [facility] Stop: 06/06/17 20:01 Last Admin: 06/06/17 21:23 Dose: 40 meq Potassium Chloride (Klor-Con M20) 40 meq PO ONETIME ONE Stop: 06/08/17 09:01 Last Admin: 06/08/17 08:25 Dose: 40 meq Scopolamine (Transderm-Scop) 1.5 mg TRDERM Q72H ONE Stop: 06/06/17 12:53 Last Admin: 06/06/17 13:28 Dose: 1.5 mg - Exam Quality Assessment: Reports: DVT Prophylaxis General: Reports: Alert, Oriented, Cooperative, No Acute Distress HEENT: Reports: Pupils Equal, Pupils Reactive, EOMI, Mucous Membr. Moist/[place] Neck: Reports: Supple Lungs: Reports: Clear to Auscultation, Normal Respiratory Effort. Denies: Crackles, Wheezing Cardiovascular: Reports: Regular Rate, Regular Rhythm GI/Abdominal Exam: Normal Bowel Sounds, Soft, Non-Tender, No Organomegaly, No Distention, No Abnormal Bruit, No Mass, Pelvis Stable (Female) Exam: Deferred Rectal (Female) Exam: Deferred Back Exam: Reports: Normal Inspection, Full Range of Motion Extremities: Normal Inspection, Normal Range of Motion, Non-Tender, No Pedal Edema, Normal Capillary Refill Skin: Reports: Warm, Dry, Intact Neurological: Reports: No New Focal Deficit Psy/Mental Status: Reports: Alert, Normal Affect, Normal Mood
== END 2017-06-08 15:28 | disposition home or self-care (01) ==
LOC: JD.ED 07:52 → JD.MS 12:34
PROVIDERS: ADMIT Emergency Medicine; ATTEND Internal Medicine
DX: J18.9 Pneumonia, unspecified organism (principal); R11.2 Nausea with vomiting, unspecified; Z79.899 Other long term (current) drug therapy; Z88.0 Allergy status to penicillin; Z88.8 Allergy status to other drugs, medicaments and biological substances; Z87.891 Personal history of nicotine dependence
CPT/HCPCS: 36415; 71045; 80048; 80053; 81001; 83735; 85025; 86140; 86738; 87040; 87486; 87581; 87633; 87798; 87804; 87899; 96361; 96365; 96366; 96375; 99285; A9270; J1885; J1956; J2405; J2765; J3480; J7040; J7042; 96367; 96376; 99217; 99219; 99224; G0378